=== PATIENT | female | born 1955 | race Caucasian/White ===

== ENCOUNTER 2017-02-12 12:43 | Emergency (ER) | payer OTHER ==
[~2017-02-12] VITALS: Ht 157.5 cm; Wt 60.0 kg
[~2017-02-12 12:43] MED LIST: PANT40TA3; TEMA30CA6
[2017-02-12 12:51] VITALS: Ht 157.5 cm; Wt 60.0 kg
--- NOTE | 2017-02-12 14:56 | ERD ---
ER Documentation Chief Complaint Date/Time DATE: 02/12/17 TIME: 14:51 Chief Complaint Complains of urine problem HPI 61-year-old female who presents to the emergency room for complaints of urinary problem. Patient stated that she has a UTI for 2 weeks. She also stated that she has 5 different antibiotics for this including Keflex, Bactrim, Cipro, Macrobid (for which she discovered that she has allergies), Augmentin. She has complaints of left flank pain. Her primary care physician named Unique Buckner whom he called told her to come here to the emergency room for an evaluation. Stated that she is nauseous but no vomiting. She also reports that she noticed that her urine has a blood. Denies headache, loss of consciousness, dizziness, blurry vision, changes in vision, photophobia, facial pain, ear pain, throat pain, difficulty swallowing, neck pain, shoulder pain, chest pain, cough, hemoptysis, abdominal pain, back pain, loss of appetite, vomiting, hematochezia, diarrhea, constipation, bladder and bowel incontinences, extremity weakness, extremity tenderness, numbness or tingling sensation, difficulty walking, recent travel, recent exposure to illness, fever, chills. Allergy: Macrobid. PMH: Breast cancer. Cervical cancer. Family medical history: Denies. Medications: Keflex, Bactrim, Cipro, Augmentin, [place], Zofran. Surgery: Bilateral mastectomy. Primary Social History: Not working at this time. Smokes about 2-4 sticks of cigarettes a day. She also stated that she is on Nicotrol. Denies use of alcohol, use of illegal drugs. Primary care provider: Dr. Unique Aponte. . ROS All systems reviewed and are negative except as per history of present illness. Medications Home Meds Reported Medications Pantoprazole* (Protonix*) 40 Mg Tablet. 09/02/10 Temazepam* (Restoril*) 30 Mg Capsule 09/02/10 Allergies Allergies: Coded Allergies: diphenhydramine (Verified Adverse Reaction, Mild, RLS, 09/02/10) ketorolac (Verified Adverse Reaction, Mild, RLE, 09/02/10) PMhx/Soc History of Surgery: Yes (double mastectomy, hysterectomy, appendectomy 30+ yrs ago) Anesthesia Reaction: No Hx Neurological Disorder: No Hx Respiratory Disorders: No Hx Cardiac Disorders: No Hx Psychiatric Problems: No Hx Miscellaneous Medical Probl: Yes (Breast and cervical CA) Hx Alcohol Use: No Hx Substance Use: No Hx Tobacco Use: No Physical Exam Vitals Vital Signs Date Time Temp Pulse Resp B/P Pulse Ox O2 Delivery O2 Flow Rate FiO2 02/12/17 12:51 81 20 109/69 98 Physical Exam CONSTITUTIONAL: Well-appearing; well-nourished; in no apparent distress. HEAD: Normocephalic; atraumatic. EYES: Conjunctiva clear, sclera non-icteric, EOM intact. PERRL Ears: Hearing intact. EACs clear, TMs non-bulging, non-inflamed, translucent & mobile, ossicles normal appearance, No obstructions, no erythema, no discharges Nose: No obstructions. No polyps. No external lesions. Mucosa non-inflamed. No external lesions, septum and turbinates normal. No rhinorrhea. No discharges. Frontal sinus is non-tender to palpation. Maxillary sinus is non-tender to palpation. MOUTH: Moist mucous membranes, no lesion, no obstructions, no vesicles, no thrush, patent airway Throat: Uvula in midline. Right tonsil is +1 with no erythema, no exudate. Left tonsil is +1 with no erythema, no exudate. Tolerating secretions well. Good gag reflex. Patent airway. Neck: Supple, without lesions, bruits, or adenopathy. No mass. Thyroid non- enlarged and non-tender to palpation. CHEST: Symmetrical chest. Respirations even and not labored. No retractions noted. CARDIOVASCULAR: Normal S1, S2. RRR. No murmurs, gallops. RESPIRATORY: Normal chest excursion with respiration; breath sounds clear and equal bilaterally; no wheezes, rhonchi, or rales. Breathing even and unlabored. Speaking in clear, full, and complete sentences w/ ease. ABDOMEN: Normal bowel sounds normal. Soft, round, non-distended, non-guarding, no tenderness, no rebound, no organomegaly, no masses, no pulsating abdominal mass. No hernia. No peritoneal signs. : Right CVA tenderness. BACK: Symmetrical shoulder. Spine is midline without deformity, tenderness. No evidence of trauma or deformity. PELVIS: Stable pelvis. No evidence of trauma or deformity. MUSCULOSKELETAL: Normal gait and station. No misalignment, asymmetry, crepitation, defects, tenderness, masses, effusions, decreased range of motion, instability, atrophy or abnormal strength or tone in the head, neck, spine, ribs , pelvis or extremities. No calf tenderness. NEUROVASCULAR: Distal pulses are present. Pedal pulse are present, equal, and normal. Capillary refills are < 2 seconds. NEUROLOGIC: Alert and oriented x4. Speaks full and clear sentences. Cranial Nerves II-XII normal. Sensation to pain, touch, and proprioception normal. Grossly unremarkable. No neurologic deficits. Romberg test is negative. PSYCHOLOGICAL: The patients mood and manner are appropriate. No hallucinations , delusions. Not SI. Not HI. Has the capacity to decide for self SKIN: Normal for age and ethnicity; warm; dry; good turgor; no apparent lesions or exudates. No rashes, hives, discoloration. Intact. Result Diagram: 02/12/17 1535 02/12/17 1535 Results 24 hrs Laboratory Tests Test 02/12/17 15:07 02/12/17 15:35 Urine Color DILLON Urine Clarity SLIGHTLY CLOUDY Urine pH 5.0 Urine Specific [place] 1.025 Urine Ketones TRACE Urine Nitrite POSITIVE Urine Bilirubin NEGATIVE Urine Urobilinogen 4.0 E.U./dL Urine Leukocyte Esterase NEGATIVE Urine Microscopic RBC 0-2/HPF Urine Microscopic WBC >200/HPF Urine Squamous Epithelial Cells MODERATE Urine Calcium Oxalate Crystals MODERATE Urine Bacteria MODERATE Urine Hemoglobin TRACE Urine Glucose 0.1%% Urine Total Protein 2+ White Blood Count 6.810^3/ul Red Blood Count 3.9110^6/ul Hemoglobin 12.0g/dl Hematocrit 37.3% Mean Corpuscular Volume 95.4fl Mean Corpuscular Hemoglobin 30.7pg Mean Corpuscular Hemoglobin Concent 32.2g/dl Red Cell Distribution Width 13.9% Platelet Count 03385^3/UL Mean Platelet Volume 9.8fl Neutrophils % 61.0% Lymphocytes % 32.7% Monocytes % 5.9% Eosinophils % 0.0% Basophils % 0.1% Nucleated Red Blood Cells % 0.0/100WBC Neutrophils # 4.110^3/ul Lymphocytes # 2.210^3/ul Monocytes # 0.410^3/ul Eosinophils # 0.010^3/ul Basophils # 0.010^3/ul Nucleated Red Blood Cells # 0.010^3/ul Sodium Level 143mmol/L Potassium Level 4.4mmol/L Chloride Level 108mmol/L Carbon Dioxide Level 27mmol/L Anion Gap 12 Blood Urea Nitrogen 16mg/dl Creatinine 0.81mg/dl Glucose Level 104mg/dl Calcium Level 9.3mg/dl Total Bilirubin 0.3mg/dl Direct Bilirubin 0.00mg/dl Indirect Bilirubin 0.3mg/dl Aspartate Amino Transf (AST/SGOT) 27IU/L Alanine Aminotransferase (ALT/SGPT) 21IU/L Alkaline Phosphatase 64IU/L Total Protein 7.1g/dl Albumin 4.4g/dl Globulin 2.70g/dl Albumin/Globulin Ratio 1.62 Amylase Level 85U/L Lipase 40U/L Current Medications Medications (Trade) Dose Ordered Sig/Mike Route PRN Reason Start Time Stop Time Status Last Admin Dose Admin Ondansetron HCl (Zofran Inj) 4 mg ONCE STAT IV 02/12/17 14:56 02/12/17 15:00 DC Ketorolac Tromethamine (Toradol) 30 mg ONCE STAT IV 02/12/17 15:22 02/12/17 15:43 DC Hydromorphone HCl 1 mg 1 mg ONCE STAT IV 02/12/17 15:41 02/12/17 15:44 DC 02/12/17 15:47 Sodium Chloride (NS) 1,000 ml @ 1,000 mls/hr Q1H ONCE IV 02/12/17 16:00 02/12/17 16:59 DC 02/12/17 15:50 Hydromorphone HCl (Dilaudid) 2 mg ONCE STAT IV 02/12/17 18:13 02/12/17 18:14 DC Procedures/MDM Examination: Please see physical examination. Disease process, medical treatment was explained to the patient and family member. They verbalized understanding and agreed with the diagnostic tests, medical treatment, and follow-up care. Radiology: CT of the abdomen and pelvis Impression: No evidence of urolithiasis, obstructive uropathy, diverticulitis or appendicitis. Indistinct all urinary bladder with stranding of surrounding fat. Question cystitis. Blood works: Reviewed. Urinalysis: Reviewed. Culture urine: Pending. Treatment: IV insertion. Normal saline 1 L bolus. Zofran IV. Dilaudid IV. Re-evaluation: Denies pain. Consultation: Differential diagnosis: Nephrolithiasis versus pyelonephritis versus complicated UTI versus cystitis Medical decision makin-year-old female who presents to the emergency room for complaints of urinary problem. Patient stated that she has a UTI for 2 weeks. She also stated that she has 5 different antibiotics for this including Keflex, Bactrim, Cipro, Macrobid (for which she discovered that she has allergies), Augmentin. She has complaints of left flank pain. Her primary care physician named Unique Buckner whom he called told her to come here to the emergency room for an evaluation. Stated that she is nauseous but no vomiting. She also reports that she noticed that her urine has a blood. Case was discussed with supervising emergency room physician Dr. Negrete who agreed with my medical decision making. He also stated to call the primary care physician of this patient named Dr. Aponte. Called Dr. Aponte at around 18:08. I discussed with him the patient's presentation, diagnostic test results, my physical findings, my discussion with my supervising emergency room physician, the patient could be discharged home with final diagnosis of acute cystitis, complicated urinary tract infection. However Dr. Aponte insisted the patient be admitted due to acute urinary tract infection with resistance to multiple antibiotics, be seen by urologist. I discussed my conversation with Dr. Aponte with Dr. Negrete. Dr. Negrete said to go ahead and admit the patient. secretary board of commissioners made aware of the decision to admit. I endorsed this patient to Dr. Negrete who accepted and continued care. He also stated that he will wait for the admitting physician to call back and we will process admission. Departure Diagnosis: Primary Impression: Acute cystitis Condition: Stable JEANETTE INGRAM Feb 12, 2017 14:56 Patient and family member verbalized understanding. Upon discharge, patient is alert and oriented x 4, speaks full and clear sentences, denies pain, has no neurological deficits, has no neurovascular deficits, difficulty of breathing. Breathing even and unlabored. Lung sounds are clear to auscultation. Not in distress. Appears comfortable. Ambulatory with steady gait. Appears satisfied with care provided here in ED. JEANETTE INGRAM Feb 12, 2017 14:56
[2017-02-12] MEDS: ONDANSETRON 4 MG INJ IV STA ×2 (15:11→15:17)
[2017-02-12] MEDS ORDERED: KETOROLAC 30 MG INJ IV STA (15:22)
[2017-02-12 15:35] LABS: ADD UMIC YES; URINE BILIRUBIN (Dip) NEGATIVE (NEGATIVE); URINE BLOOD (Dip) TRACE (NEGATIVE); URINE COLOR AMBER (YELLOW); URINE KETONES (Dip) TRACE (NEGATIVE); URINE LEUKOCYTE ESTERASE (Dip) NEGATIVE (NEGATIVE); URINE NITRITE (Dip) POSITIVE (NEGATIVE); URINE TOTAL PROTEIN (Dip) 2+ (NEGATIVE); URINE UROBILINOGEN (Dip) 4.0 E.U./dL (0.1-1.0)
[2017-02-12] MEDS ORDERED: HYDROmorphONE 1 MG/ML SYG IV STA (15:41)
[2017-02-12 15:46] LABS: ADD SCAN DIFF NO
[2017-02-12 15:48] LABS: BASOPHILS % 0.1 % (0.0-2.0); HEMATOCRIT 37.3 % (37.0-47.0); LYMPHOCYTES # 2.2 10^3/ul (0.8-2.9); LYMPHOCYTES % 32.7 % (15.0-51.0); MEAN CORPUSCULAR HEMOGLOBIN 30.7 pg (29.0-33.0); MEAN CORPUSCULAR HGB CONC 32.2 g/dl (32.0-37.0); MEAN CORPUSCULAR VOLUME 95.4 fl (82.0-101.0); MEAN PLATELET VOLUME 9.8 fl (7.4-10.4); MONOCYTE # 0.4 10^3/ul (0.3-0.9); MONOCYTES % 5.9 % (0.0-11.0); NEUTROPHIL # 4.1 10^3/ul (1.6-7.5); PLATELET COUNT 232 10^3/UL (140-415); RED BLOOD COUNT 3.91 10^6/ul (4.20-5.40); RED CELL DISTRIBUTION WIDTH 13.9 % (11.5-14.5); WHITE BLOOD COUNT 6.8 10^3/ul (4.8-10.8)
[2017-02-12 15:48] LABS: BACTERIA,URINE MODERATE; SQUAMOUS EPITHELIAL CELL,UR MODERATE; URINE RBCS 0-2 /HPF (0)
[2017-02-12] MEDS ORDERED: SOD CHLORIDE 0.9% 1,000 ML IV ONE (16:00)
[2017-02-12 16:03] LABS: ALBUMIN 4.4 g/dl (3.3-4.9); POTASSIUM 4.4 mmol/L (3.5-5.1)
[2017-02-12 16:06] LABS: BILIRUBIN,INDIRECT 0.3 mg/dl (0-1.1); BILIRUBIN,TOTAL 0.3 mg/dl (0.2-1.3); CALCIUM 9.3 mg/dl (8.4-10.2); CREATININE 0.81 mg/dl (0.44-1.00); TOTAL PROTEIN 7.1 g/dl (6.1-8.1)
[2017-02-12 16:07] LABS: ALBUMIN/GLOBULIN RATIO 1.62
--- NOTE | 2017-02-12 17:41 | RADRPT ---
PROCEDURE: CT abdomen and pelvis without contrast. CLINICAL INDICATION: Right flank pain. TECHNIQUE: CT scan of the abdomen and pelvis without contrast was performed and is reconstructed a t 2.5 mm contiguous axial intervals from the dome of the diaphragm to the inferior pubic rami.. The patient was scanned without intravenous contrast. Sagittal and coronal reformatted images were obt ained from the axial source images. The calculated radiation dose measures 369 mGy centimeters. The CTDI measures 8 mGy. COMPARISON: None. FINDINGS: The lung bases are clear of any infiltrate or nodule. No effusion is seen. The liver is of normal size, contour and attenuation with no mass or ductal dilatation. No gallston es are visualized. No splenic, adrenal or pancreatic abnormalities present. Kidneys are of normal size and contour. No hydronephrosis, calculus or masses seen. Ureters are o f normal course and caliber with no stone. No bladder mass or stone is present. The obando of the bl adder are indistinct and there is stranding of the fat in the pelvis. Findings are suggestive of cy stitis. The uterus is been removed. There is no adnexal mass. There is no aneurysm. There are vascular calcifications. No adenopathy is present. No bowel mass or obstruction is present. The appendix is normal. No phlegmon, ascites or pneumop eritoneum is visualized. The osseous structures are intact. IMPRESSION: No evidence of urolithiasis, obstructive uropathy, diverticulitis or appendicitis. Indistinct wall urinary bladder with stranding of surrounding fat. Question cystitis. .Neville Suarez MD, MD Date Time Electronically viewed and signed by .Neville Suarez MD, on 02/12/2017 17:40 .A/
[2017-02-12] MEDS ORDERED: HYDROmorphONE 2 MG/ML SYG IV STA ×2 (18:13→21:25)
[2017-02-12] MEDS ORDERED: LEVOFLOXACIN 750MG/D5W (PMX) 150 ML IVPB ONE (19:00)
--- NOTE | 2017-02-12 21:29 | EN ---
Date/Time of Note Date/Time of Note DATE: 02/12/17 TIME: 21:[address] Arroyo has talked to this patient. The patient has multiple visits for similar symptoms. She has chronic pain. He has talked the patient into going home. The patient is following up with urology tomorrow. The patient's urinalysis is consistent with UTI however Dr. Arroyo states this is a chronic issue, consider contamination, he recommends holding on antibiotics, culture monitoring. He discussed with the patient another dose of IV Dilaudid. The patient is requesting 4 mg. I feel comfortable 2 mg IV which will be provided to the patient. She has already received 3 mg IV here in the emergency room. The patient has a history of chronic pain, chronic narcotic dependence. The patient will be discharged based on these plans JACOB GILLIS MD Feb 12, 2017 21:29
[2017-02-12 21:49] VITALS: BP 139/91; PULSE 66; RESP 17; TEMP 98.7
== END 2017-02-12 21:49 | disposition home or self-care (01) ==
LOC: FTE 12:43
DX: N30.00 Acute cystitis without hematuria (principal); F17.210 Nicotine dependence, cigarettes, uncomplicated; Z85.41 Personal history of malignant neoplasm of cervix uteri; Z85.3 Personal history of malignant neoplasm of breast
CPT/HCPCS: 36415; 74176; 80053; 81001; 82150; 83690; 85025; 87086; 96374; 96375; 96376; J1170; J1956; J7030; Z7502; 81003; J1885; J2405

== ENCOUNTER 2017-02-13 12:44 | Emergency (ER) | payer OTHER ==
[~2017-02-13] VITALS: Wt 65.0 kg
[2017-02-13 13:47] LABS: ADD UMIC YES; URINE BILIRUBIN (Dip) NEGATIVE (NEGATIVE); URINE BLOOD (Dip) TRACE (NEGATIVE); URINE COLOR AMBER (YELLOW); URINE GLUCOSE (Dip) NEGATIVE (NEGATIVE); URINE KETONES (Dip) NEGATIVE (NEGATIVE); URINE LEUKOCYTE ESTERASE (Dip) NEGATIVE (NEGATIVE); URINE NITRITE (Dip) POSITIVE (NEGATIVE); URINE TOTAL PROTEIN (Dip) NEGATIVE (NEGATIVE); URINE UROBILINOGEN (Dip) 0.2 E.U./dL (0.1-1.0)
[2017-02-13 14:09] LABS: BACTERIA,URINE MODERATE
--- NOTE | 2017-02-13 15:08 | ERD ---
ER Documentation Chief Complaint Date/Time DATE: 02/13/17 TIME: 15:05 Chief Complaint DYSURIA . HEMATURIA FOR THE PAST FEW DAYS. NOT BETTER WITH ABX. HPI This 61-year-old female presents for dysuria and hematuria. Patient gives a history of having urinary frequency and dysuria for last few weeks. She states that she is taking antibiotics 7 times. Review of the record shows that she has had 5-6 ER visits for the last 3 weeks. She was seen her last night upon the advice of her primary doctor who wanted her admitted for possible multidrug- resistant UTI. There is no current culture available. She does have many bacteria, nitrites and white blood cells in her urine from yesterday. Hospitalist advised patient that she would be treated as an outpatient last night will be called with the urology appointment. Patient is here because she was not been called for urology appointment. Hospitalist last night was Dr. York. Patient has persistent dysuria and urinary frequency without fevers, vomiting,. She does have some mild suprapubic abdominal pain. ROS All systems reviewed and are negative except as per history of present illness. Medications Home Meds Reported Medications Pantoprazole* (Protonix*) 40 Mg Tablet. 09/02/10 Temazepam* (Restoril*) 30 Mg Capsule 09/02/10 Allergies Allergies: Coded Allergies: diphenhydramine (Verified Adverse Reaction, Mild, RLS, 09/02/10) ketorolac (Verified Adverse Reaction, Mild, RLE, 09/02/10) PMhx/Soc History of Surgery: Yes (double mastectomy, hysterectomy, appendectomy 30+ yrs ago) Anesthesia Reaction: No Hx Neurological Disorder: No Hx Respiratory Disorders: No Hx Cardiac Disorders: No Hx Psychiatric Problems: No Hx Miscellaneous Medical Probl: Yes (Breast and cervical CA) Hx Alcohol Use: No Hx Substance Use: No Hx Tobacco Use: No Physical Exam Vitals Vital Signs Date Time Temp Pulse Resp B/P Pulse Ox O2 Delivery O2 Flow Rate FiO2 02/13/17 12:47 98.8 74 21 164/85 98 Physical Exam Const: [] Alert, [id number]. Head: Atraumatic Eyes: Normal Conjunctiva ENT: Normal External Ears, Nose and Mouth. Neck: Full range of motion..~ No meningismus. Resp: Clear to auscultation bilaterally Cardio: Regular rate and rhythm, no murmurs Abd: Soft, mild suprapubic tenderness, non distended. Normal bowel sounds Skin: No petechiae or rashes Back: No midline or flank tenderness Ext: No cyanosis, or edema Neur: Awake and alert Psych: Normal Mood and Affect Results 24 hrs Laboratory Tests Test 02/13/17 13:30 Urine Color DILLON Urine Clarity CLEAR Urine pH 6.0 Urine Specific [place] <=1.005 Urine Ketones NEGATIVE Urine Nitrite POSITIVE Urine Bilirubin NEGATIVE Urine Urobilinogen 0.2 E.U./dL Urine Leukocyte Esterase NEGATIVE Urine Microscopic RBC 2-5/HPF Urine Microscopic WBC 2-5/HPF Urine Epithelial Cells MODERATE Urine Bacteria MODERATE Urine Hemoglobin TRACE Urine Glucose NEGATIVE% Urine Total Protein NEGATIVE Procedures/MDM Urine shows positive bacteria, nitrites and hemoglobin. Urine was sent for culture. Hospitalist manager of transportation was contacted. She is aware of the patient's case. Patient according to hospitalist will be called with the next 24 hours for urology follow-up. Patient was advised by hospice yesterday to hold antibiotics until culture results. Patient shows no signs of sepsis or pyelonephritis or acute abdomen. She has urinary tract symptoms despite multiple rounds of antibiotics does require urology follow-up. She was advised to wait until call from insurance for urology follow-up otherwise follow-up with primary care doctor this week. The patient was stable with no new complaints during the ER course. Clinically, there is no current evidence to suggest meningitis, sepsis, acute abdomen, pneumonia, acute coronary syndrome, pulmonary embolism, or any other emergent condition appearing to require further evaluation or hospitalization. The patient should certainly return for any new or worsening symptoms per the aftercare instructions. They should otherwise follow-up with her primary care doctor for reevaluation this week. Departure Diagnosis: Primary Impression: Dysuria Additional Impression: Acute cystitis Hematuria presence: without hematuria Qualified Code: N30.00 - Acute cystitis without hematuria Patient Instructions: Dysuria, Cystitis Referrals: SANDRA GEORGES MD (PCP) Additional Instructions: Hospitalists assures that he will be called with urology appointment within 24 hours. Drink fluids and recheck for fevers, vomiting, or with primary doctor. Urine culture should return in the next 1-3 days. MICHELLE PIERCE MD Feb 13, 2017 15:08
[2017-02-14] MEDS ORDERED: CALC500T91 PO (09:05)
[2017-02-14] MEDS ORDERED: ONDA-43 PO (09:06)
[2017-02-14] MEDS ORDERED: LORA-441 PO (09:06)
[2017-02-14] MEDS ORDERED: LEVO750T25 PO (12:14)
[2017-02-14] MEDS ORDERED: HYDR-906 PO (12:14)
== END 2017-02-13 15:42 | disposition home or self-care (01) ==
LOC: FTE 12:44
DX: R30.0 Dysuria (principal); N30.00 Acute cystitis without hematuria; Z85.3 Personal history of malignant neoplasm of breast; Z85.41 Personal history of malignant neoplasm of cervix uteri
CPT/HCPCS: 81001; 81003; 87086; 99283

== ENCOUNTER 2017-02-14 07:32 | Emergency (ER) | payer OTHER ==
[~2017-02-14] VITALS: Ht 160 cm; Wt 68.0 kg
[2017-02-14] MEDS ORDERED: SOD CHLORIDE 0.9% 1,000 ML IV STA (07:36)
[2017-02-14 07:39] VITALS: Ht 160 cm; Wt 68.0 kg
--- NOTE | 2017-02-14 07:48 | ERD ---
ER Documentation Chief Complaint Date/Time DATE: 02/14/17 TIME: 07:45 Chief Complaint UTI x 3 weeks HPI This is a 61-year-old female with a known history of multidrug-resistant urinary tract infection that has been persistent for the past 3 weeks. The patient had been seen and evaluated in the emergency department 48 hours prior to arrival. At that time she had a urinary tract infection with pyuria of greater than 200 white blood cells. She also had a CT scan of the abdomen indicated there was indistinct stranding of the urinary bladder with surrounding fat but no obstructive uropathy. The patient had no leukocytosis on February 12, 2017. The patient had received a dose of IV Levaquin in the emergency department and had subsequently been discharged home after she had a discussion with the [facility] physician, Dr. Yuan, and the decision was made to follow-up with an outpatient urologist. The patient indicates that over the past 3 weeks she has been on multiple doses of antibiotics. She was first placed on Keflex and urine culture was positive for E. coli. Her symptoms still persisted and therefore she was placed on Bactrim followed by Augmentin followed by Macrobid. She did have an anaphylactic reaction to the Macrobid. Given that her symptoms had persisted she did present to the emergency department on February 12, 2017 with the above treatment. The patient had return to the emergency department yesterday due to persistent dysuria frequency and urgency. She indicates her last dose of antibiotics was IV Levaquin 24 hours prior to arrival and she was instructed yesterday by her hospitalist, Dr. Yuan, to hold all antibiotics until the urine culture returned. Dr. Beard had been consulted yesterday via the phone and indicated that the patient will receive a telephone call as to when her outpatient urology appointment would occur. However the patient returns to the emergency department today indicating that her urinary symptoms of dysuria frequency and urgency have persisted despite her taking Pyridium. She has had tactile fever fevers with shaking and chills. She complains of mild suprapubic pain and left flank pain exacerbated with urination. She did not take any analgesic medication prior to arrival. She has no chest pain or pressure that radiates to the neck arm back or jaw. She denies any shortness of breath at rest or exertion. The patient had a double meniscectomy and she is a remote history of breast carcinoma and cervical carcinoma. The patient had a total abdominal hysterectomy several years prior to arrival ROS All systems reviewed and are negative except as per history of present illness. Medications Home Meds Reported Medications Pantoprazole* (Protonix*) 40 Mg Tablet. 09/02/10 Temazepam* (Restoril*) 30 Mg Capsule 09/02/10 Allergies Allergies: Coded Allergies: diphenhydramine (Verified Adverse Reaction, Mild, RLS, 09/02/10) ketorolac (Verified Adverse Reaction, Mild, RLE, 09/02/10) PMhx/Soc History of Surgery: Yes (double mastectomy, hysterectomy, appendectomy 30+ yrs ago) Anesthesia Reaction: No Hx Neurological Disorder: No Hx Respiratory Disorders: No Hx Cardiac Disorders: No Hx Psychiatric Problems: No Hx Miscellaneous Medical Probl: Yes (Breast and cervical CA) Hx Alcohol Use: No Hx Substance Use: No Hx Tobacco Use: No Physical Exam Vitals Vital Signs Date Time Temp Pulse Resp B/P Pulse Ox O2 Delivery O2 Flow Rate FiO2 02/14/17 07:39 97.4 78 20 108/72 96 Physical Exam Constitutional:Well-developed. Well-nourished. HEENT:Normocephalic. Atraumatic.Pupils were equal round reactive to light. Moist mucous membranes.No tonsillar exudates. Respiratory: Not using accessory muscles of respiration.Lungs were clear to auscultation bilaterally. No rhonchi. No rales. No wheezing. Cardiovascular: Regular rate regular rhythm.No murmurs. No rubs were appreciated.S1, S2 normal. Distal pulses are palpable 2+ bilaterally. GI: Abdomen was soft. Mild suprapubic tenderness. Non Distended. No pulsatile abdominal masses or bruits. No rebound. No guarding. Bowel sounds were present and normal. Skin: No petechia, no purpura. No lesions on the palms or the soles of the feet. No maculopapular rash. NEURO: Patient was alert, awake, orientated x3.No facial droop. Gait observed and normal with no ataxia.Speech had regular rate and rhythm. No focal neurological deficits. Results 24 hrs Current Medications Medications (Trade) Dose Ordered Sig/Mike Route PRN Reason Start Time Stop Time Status Last Admin Dose Admin Sodium Chloride (NS) 1,000 ml @ 1,000 mls/hr Q1H STAT IV 02/14/17 07:36 02/14/17 08:35 DC Phenazopyridine HCl (Pyridium) 200 mg ONCE ONCE PO 02/14/17 08:00 02/14/17 08:01 DC Hydromorphone HCl (Dilaudid) 2 mg ONCE STAT IV 02/14/17 08:15 02/14/17 08:17 DC Ondansetron HCl 4 mg 4 mg ONCE STAT IV 02/14/17 08:15 02/14/17 08:17 DC Levofloxacin/ Dextrose (Levaquin 500mg/ D5W 100 ml (Pmx)) 100 ml @ 100 mls/hr ONCE ONCE IVPB 02/14/17 08:30 02/14/17 09:29 Procedures/MDM This patient presented to the emergency department with persistent frequency urgency and dysuria and left flank pain. Given that the patient has failed outpatient treatment with antibiotics I did feel the patient required admission for further IV antibiotics. Blood cultures and urine cultures have been obtained and the patient was given a dose of IV Levaquin as this appeared to significantly improve her symptoms but did not completely resolve all of her frequency urgency and dysuria. I do not feel is necessary at this time to repeat a CT scan as this was done on February 12, 2017 that was suggestive of acute cystitis with no pyelonephritis. The patient had received IV Dilaudid and Zofran for analgesic control. I reviewed the urine culture that have been taken on February 12, 2017 and as of today February 14, 2017 there was no growth. I spoke with the [facility] physician who indicated she will arrange transfer for the patient to be [facility] for [facility] and also will arrange for urological consultation in order to obtain a cystoscopy with biopsy in order to rule out other etiologies such as neoplasm that could be a result of the patient 's symptoms. Departure Diagnosis: Primary Impression: Urinary tract infection Urinary tract infection type: acute cystitis Hematuria presence: without hematuria Qualified Code: N30.00 - Acute cystitis without hematuria Condition: MICHAEL Ku Feb 14, 2017 07:48
[2017-02-14] MEDS ORDERED: PHENAZOPYRIDINE 100 MG TAB PO ONE (08:00)
[2017-02-14] MEDS ORDERED: ONDANSETRON 4 MG INJ IV STA ×3 (08:15→12:13)
[2017-02-14] MEDS ORDERED: HYDROmorphONE 1 MG/ML SYG IV STA (08:15)
[2017-02-14] MEDS ORDERED: LEVOFLOXACIN 500MG/D5W (PMX) 100 ML IVPB ONE (08:30)
[2017-02-14 08:41] LABS: ADD SCAN DIFF NO
[2017-02-14 08:48] LABS: BASOPHILS % 0.4 % (0.0-2.0); HEMATOCRIT 37.6 % (37.0-47.0); HEMOGLOBIN 12.3 g/dl (12.0-16.0); LYMPHOCYTES # 2.8 10^3/ul (0.8-2.9); LYMPHOCYTES % 53.7 % (15.0-51.0); MEAN CORPUSCULAR HEMOGLOBIN 30.8 pg (29.0-33.0); MEAN CORPUSCULAR HGB CONC 32.7 g/dl (32.0-37.0); MONOCYTE # 0.3 10^3/ul (0.3-0.9); MONOCYTES % 6.4 % (0.0-11.0); NEUTROPHILS % 39.1 % (39.0-77.0); PLATELET COUNT 259 10^3/UL (140-415); RED CELL DISTRIBUTION WIDTH 13.9 % (11.5-14.5); WHITE BLOOD COUNT 5.2 10^3/ul (4.8-10.8)
[2017-02-14 08:53] LABS: ADD UMIC YES; URINE BILIRUBIN (Dip) 2+ (NEGATIVE); URINE BLOOD (Dip) TRACE (NEGATIVE); URINE COLOR AMBER (YELLOW); URINE KETONES (Dip) 15 (NEGATIVE); URINE LEUKOCYTE ESTERASE (Dip) 2+ (NEGATIVE); URINE NITRITE (Dip) POSITIVE (NEGATIVE); URINE TOTAL PROTEIN (Dip) 4+ (NEGATIVE); URINE UROBILINOGEN (Dip) >8.0 E.U./dL (0.1-1.0)
[2017-02-14 08:54] LABS: INR 1.04; PROTIME 13.6 Sec (12.2-14.2); PT RATIO 1.1
[2017-02-14 08:55] LABS: PARTIAL THROMBOPLASTIN TIME 38.3 Sec (25.0-35.0)
[2017-02-14 08:56] LABS: ALBUMIN 4.5 g/dl (3.3-4.9); POTASSIUM 3.5 mmol/L (3.5-5.1)
[2017-02-14 08:59] LABS: ALBUMIN/GLOBULIN RATIO 1.6; BILIRUBIN,INDIRECT 0.8 mg/dl (0-1.1); BILIRUBIN,TOTAL 0.8 mg/dl (0.2-1.3); CALCIUM 9.1 mg/dl (8.4-10.2); CREATININE 0.81 mg/dl (0.44-1.00); TOTAL PROTEIN 7.3 g/dl (6.1-8.1)
[2017-02-14] MEDS ORDERED: CALC500T91 PO (09:05)
[2017-02-14] MEDS ORDERED: LORA-441 PO (09:06)
[2017-02-14] MEDS ORDERED: ONDA-43 PO (09:06)
[2017-02-14 09:09] LABS: BACTERIA,URINE FEW; ICTOTEST NEGATIVE (NEGATIVE)
[2017-02-14] MEDS ORDERED: HYDROmorphONE 2 MG/ML SYG IV STA ×2 (10:22→12:13)
[2017-02-14 10:48] VITALS: BP 131/99; PULSE 78; RESP 18
[2017-02-14] MEDS ORDERED: HYDR-906 PO (12:14)
[2017-02-14] MEDS ORDERED: LEVO750T25 PO (12:14)
== END 2017-02-14 13:20 | disposition home or self-care (01) ==
LOC: E/R 07:32
DX: N30.00 Acute cystitis without hematuria (principal); R10.30 Lower abdominal pain, unspecified; Z85.41 Personal history of malignant neoplasm of cervix uteri; Z85.3 Personal history of malignant neoplasm of breast
CPT/HCPCS: 80053; 81001; 85025; 85610; 85730; 87040; 87086; 96374; 96375; 96376; J1170; J1956; J2405; J7030; Z7502; Z7610; 81003

== ENCOUNTER 2017-02-15 00:08 | Emergency (ER) | payer OTHER ==
[~2017-02-15] VITALS: Ht 152.4 cm; Wt 61.5 kg
[~2017-02-15 00:08] MED LIST changes: +CALC500T91 PO; +HYDR-906 PO; +LEVO750T25 PO; +LORA-441 PO; +ONDA-43 PO; -PANT40TA3; -TEMA30CA6
[2017-02-15 00:13] VITALS: Ht 152.4 cm; Wt 61.5 kg
[2017-02-15] MEDS ORDERED: SOD CHLORIDE 0.9% 500 ML IV STA (00:35)
[2017-02-15 01:24] LABS: ADD UMIC YES; URINE BILIRUBIN (Dip) NEGATIVE (NEGATIVE); URINE BLOOD (Dip) NEGATIVE (NEGATIVE); URINE COLOR AMBER (YELLOW); URINE GLUCOSE (Dip) NEGATIVE (NEGATIVE); URINE KETONES (Dip) NEGATIVE (NEGATIVE); URINE LEUKOCYTE ESTERASE (Dip) NEGATIVE (NEGATIVE); URINE NITRITE (Dip) POSITIVE (NEGATIVE); URINE TOTAL PROTEIN (Dip) NEGATIVE (NEGATIVE); URINE UROBILINOGEN (Dip) 0.2 E.U./dL (0.1-1.0)
[2017-02-15 01:35] LABS: URINE RBCS NONE SEEN /HPF (0)
[2017-02-15 01:36] LABS: BACTERIA,URINE FEW; SQUAMOUS EPITHELIAL CELL,UR OCCASIONAL
[2017-02-15 01:55] LABS: ADD SCAN DIFF NO
[2017-02-15 01:56] LABS: BASOPHILS % 0.2 % (0.0-2.0); HEMATOCRIT 32.9 % (37.0-47.0); HEMOGLOBIN 10.5 g/dl (12.0-16.0); LYMPHOCYTES # 2.5 10^3/ul (0.8-2.9); LYMPHOCYTES % 42.5 % (15.0-51.0); MEAN CORPUSCULAR HEMOGLOBIN 30.4 pg (29.0-33.0); MEAN CORPUSCULAR HGB CONC 31.9 g/dl (32.0-37.0); MEAN CORPUSCULAR VOLUME 95.4 fl (82.0-101.0); MEAN PLATELET VOLUME 10.5 fl (7.4-10.4); MONOCYTE # 0.3 10^3/ul (0.3-0.9); NEUTROPHILS % 52.1 % (39.0-77.0); PLATELET COUNT 181 10^3/UL (140-415); RED BLOOD COUNT 3.45 10^6/ul (4.20-5.40); RED CELL DISTRIBUTION WIDTH 14.2 % (11.5-14.5); WHITE BLOOD COUNT 5.8 10^3/ul (4.8-10.8)
[2017-02-15] MEDS ORDERED: HYDROmorphONE 1 MG/ML SYG IV STA (01:58)
[2017-02-15 02:10] LABS: ALBUMIN 3.8 g/dl (3.3-4.9)
[2017-02-15 02:11] LABS: POTASSIUM 3.9 mmol/L (3.5-5.1)
[2017-02-15 02:13] LABS: BILIRUBIN,INDIRECT 0.4 mg/dl (0-1.1); BILIRUBIN,TOTAL 0.4 mg/dl (0.2-1.3); CREATININE 0.79 mg/dl (0.44-1.00)
[2017-02-15 02:14] LABS: ALBUMIN/GLOBULIN RATIO 1.26; CALCIUM 8.8 mg/dl (8.4-10.2); TOTAL PROTEIN 6.8 g/dl (6.1-8.1)
--- NOTE | 2017-02-15 03:02 | ERD ---
ER Documentation Chief Complaint Date/Time DATE: 02/15/17 TIME: 02:59 Chief Complaint pt reports uti x 3 weeks pt with back pain. Pcp wants admission HPI .This is a pleasant 61-year-old female with a known history of multidrug- resistant UTI that has been going on for the past 3 weeks. The patient had been seen and evaluated in the emergency department multiple times in the 48 hours prior to this visit. At that time she had a urinary tract infection with pyuria of greater than 200 white blood cells. She also had a CT scan of the abdomen indicated there was indistinct stranding of the urinary bladder with surrounding fat but no obstructive uropathy. The patient had received a dose of IV Levaquin in the emergency department and had subsequently been discharged home after she had a discussion with the [facility] physician, Dr. Yuan, and the decision was made to follow-up with an outpatient urologist. The patient indicates that over the past 3 weeks she has been on multiple doses of antibiotics. She was first placed on Keflex and urine culture was positive for E. coli. Her symptoms still persisted and therefore she was placed on Bactrim followed by Augmentin followed by Macrobid. Dr. Beard had been consulted yesterday via the phone and indicated that the patient will receive a telephone call as to when her outpatient urology appointment would occur. However the patient returns to the emergency department today indicating that her urinary symptoms of dysuria frequency and urgency have persisted despite her taking Pyridium. She has had tactile fever fevers with shaking and chills. She complains of mild suprapubic pain and left flank pain exacerbated with urination. She did not take any analgesic medication prior to arrival. ROS All systems reviewed and are negative except as per history of present illness. Medications Home Meds Active Scripts Hydrocodone/Acetaminophen ([place] 5-325 Tablet) 1 Each Tablet, 1 TAB PO Q6H Y for PAIN, #20 TAB Prov:MICHAEL JOHNSON 02/14/17 Levofloxacin* (Levaquin*) 750 Mg Tablet, 750 MG PO DAILY for 5 Days, TAB Prov:MICHAEL JOHNSON 02/14/17 Reported Medications Lorazepam* (Ativan*) 0.5 Mg Tablet, 0.5 MG PO HS Y for ANXIETY, #30 TAB 02/14/17 Ondansetron Hcl* (Zofran*) 4 Mg Tab, 4 MG PO Q6H Y for NAUSEA AND OR VOMITING, TAB 02/14/17 Calcium Carbonate ([id number]) 500 Mg Tablet, 500 MG PO DAILY, TAB 02/14/17 Discontinued Reported Medications Pantoprazole* (Protonix*) 40 Mg Tablet. 09/02/10 Temazepam* (Restoril*) 30 Mg Capsule 09/02/10 Allergies Allergies: Coded Allergies: nitrofurantoin (Verified Allergy, Intermediate, 02/14/17) diphenhydramine (Verified Adverse Reaction, Mild, RLS, 09/02/10) ketorolac (Verified Adverse Reaction, Mild, RLE, 09/02/10) PMhx/Soc History of Surgery: Yes (double mastectomy, hysterectomy, appendectomy 30+ yrs ago) Anesthesia Reaction: No Hx Neurological Disorder: No Hx Respiratory Disorders: No Hx Cardiac Disorders: No Hx Psychiatric Problems: No Hx Miscellaneous Medical Probl: Yes (Breast and cervical CA) Hx Alcohol Use: No Hx Substance Use: No Hx Tobacco Use: Yes Smoking Status: Current every day smoker Physical Exam Vitals Vital Signs Date Time Temp Pulse Resp B/P Pulse Ox O2 Delivery O2 Flow Rate FiO2 02/15/17 00:13 98.3 85 16 110/72 96 Physical Exam Const: [] Head: Atraumatic Eyes: Normal Conjunctiva ENT: Normal External Ears, Nose and Mouth. Neck: Full range of motion..~ No meningismus. Resp: Clear to auscultation bilaterally Cardio: Regular rate and rhythm, no murmurs Abd: Soft, non tender, non distended. Normal bowel sounds Skin: No petechiae or rashes Back: No midline or flank tenderness Ext: No cyanosis, or edema Neur: Awake and alert Psych: Normal Mood and Affect Result Diagram: 02/15/1713402/15/17134 Results 24 hrs Laboratory Tests Test 02/15/17 01:11 02/15/17 01:35 Urine Color [place] Urine Clarity CLEAR Urine pH 5.0 Urine Specific [place] <=1.005 Urine Ketones NEGATIVE Urine Nitrite POSITIVE Urine Bilirubin NEGATIVE Urine Urobilinogen 0.2 E.U./dL Urine Leukocyte Esterase NEGATIVE Urine Microscopic RBC NONE SEEN/HPF Urine Microscopic WBC 0-2/HPF Urine Squamous Epithelial Cells OCCASIONAL Urine Bacteria FEW Urine Hemoglobin NEGATIVE Urine Glucose NEGATIVE% Urine Total Protein NEGATIVE White Blood Count 5.810^3/ul Red Blood Count 3.4510^6/ul Hemoglobin 10.5g/dl Hematocrit 32.9% Mean Corpuscular Volume 95.4fl Mean Corpuscular Hemoglobin 30.4pg Mean Corpuscular Hemoglobin Concent 31.9g/dl Red Cell Distribution Width 14.2% Platelet Count 58303^3/UL Mean Platelet Volume 10.5fl Neutrophils % 52.1% Lymphocytes % 42.5% Monocytes % 5.0% Eosinophils % 0.0% Basophils % 0.2% Nucleated Red Blood Cells % 0.0/100WBC Neutrophils # 3.010^3/ul Lymphocytes # 2.510^3/ul Monocytes # 0.310^3/ul Eosinophils # 0.010^3/ul Basophils # 0.010^3/ul Nucleated Red Blood Cells # 0.010^3/ul Sodium Level 140mmol/L Potassium Level 3.9mmol/L Chloride Level 111mmol/L Carbon Dioxide Level 20mmol/L Anion Gap 13 Blood Urea Nitrogen 14mg/dl Creatinine 0.79mg/dl Glucose Level 94mg/dl Calcium Level 8.8mg/dl Total Bilirubin 0.4mg/dl Direct Bilirubin 0.00mg/dl Indirect Bilirubin 0.4mg/dl Aspartate Amino Transf (AST/SGOT) 19IU/L Alanine Aminotransferase (ALT/SGPT) 23IU/L Alkaline Phosphatase 48IU/L Total Protein 6.8g/dl Albumin 3.8g/dl Globulin 3.00g/dl Albumin/Globulin Ratio 1.26 Lipase 35U/L Current Medications Medications (Trade) Dose Ordered Sig/Mike Route PRN Reason Start Time Stop Time Status Last Admin Dose Admin Sodium Chloride (NS) 500 ml @ 500 mls/hr Q1H STAT IV 02/15/17 00:35 02/15/17 01:34 DC 02/15/17 01:29 Hydromorphone HCl (Dilaudid) 1 mg ONCE STAT IV 02/15/17 01:58 02/15/17 01:59 DC 02/15/17 02:10 Procedures/MDM Medical decision making: Dr. Maria Esther DE OLIVEIRA was consulted on the patient. She advised the patient be discharged home with follow-up with urology as an outpatient. Patient made aware. Patient is obviously unhappy at this time. Says she will follow-up as an outpatient Departure Diagnosis: Primary Impression: Acute cystitis Hematuria presence: without hematuria Qualified Code: N30.00 - Acute cystitis without hematuria Condition: Stable LALO LAWRENCE Feb 15, 2017 03:02
[2017-02-15] MEDS ORDERED: HYDROmorphONE 2 MG/ML SYG IV STA (03:07)
[2017-02-15 03:39] VITALS: BP 107/76; PULSE 75; RESP 18; TEMP 98.7
== END 2017-02-15 03:41 | disposition home or self-care (01) ==
LOC: E/R 00:08
DX: N30.00 Acute cystitis without hematuria (principal); F17.210 Nicotine dependence, cigarettes, uncomplicated; Z85.3 Personal history of malignant neoplasm of breast; Z85.41 Personal history of malignant neoplasm of cervix uteri
CPT/HCPCS: 80053; 81001; 83690; 85025; 87040; 87086; 96374; 96376; J1170; J7040; Z7502; Z7610; 81003